=== PATIENT | female | born 1990 | race Caucasian/White ===

== ENCOUNTER → 2021-07-09 08:51 | Outpatient (CLI) | payer OTHER, SELFPAY ==
[2021-07-09 19:33] LABS: SARS-CoV-2 RNA PCR Negative
== END ==
PROVIDERS: PCP Family Medicine; Visit Provider Nurse Practitioner
DX: Z20.822 Contact with and (suspected) exposure to COVID-19 (principal)
CPT/HCPCS: C9803; U0003; U0005

== ENCOUNTER 2022-02-26 08:50 | Outpatient (CLI) | payer BC, SELFPAY ==
[2022-02-26 18:19] LABS: Beta HCG Quantitative < 2.39 mIU/ML
== END 2022-02-26 08:51 | disposition home or self-care (01) ==
LOC: ANHGOSHLAB 08:51
PROVIDERS: PCP Family Medicine; Visit Provider Nurse Practitioner
DX: N91.2 Amenorrhea, unspecified (principal)
CPT/HCPCS: 36415; 84702